=== PATIENT | female | born 1965 | race Caucasian/White ===

== ENCOUNTER 2018-06-24 21:07 | Emergency (ER) | payer BC ==
--- NOTE | 2018-06-24 21:55 | Emergency Department Record ---
History of Present Illness - General Stated Complaint: INFECTION ON FINGER ON RT HAND Time Seen by Provider: 06/24/18 21:26 Source: Patient Mode of Arrival: Ambulatory Limitations: No limitations - History of Present Illness Initial Comments: 52 yo female presents to ED for evaluation of swelling and pain to the right middle finger distally that began yesterday. Patient reports recent laceration to the tuft of the finger that was initially healing, however became more swollen and painful starting yesterday. 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 MD Complaint: Injury to:: Right Onset/Timin -: Days(s) Other Extremity Injury: Fingers: Right Other Injuries: None Handedness: Right Place: Home Improves With: None Worsens With: Other (palpation) Context: Laceration Associated Symptoms: Denies other symptoms - Related Data Previous Rx's Medication Instructions Recorded Clindamycin HCl 300 mg PO QID #27 capsule 06/24/18 Allergies Allergy/AdvReac Type Severity Reaction Status Date / Time No Known Drug Allergies Allergy Verified 06/24/18 21:58 Review of Systems Constitutional: Denies: Chills, Fever, Malaise, Night sweats Eyes: Denies: Eye discharge, Eye pain ENT: Denies: Congestion, Ear pain, Epistaxis Respiratory: Denies: Cough, Dyspnea Cardiovascular: Denies: Chest pain, Dyspnea on exertion Endocrine: Denies: Fatigue Gastrointestinal: Denies: Abdominal pain, Nausea, Vomiting Genitourinary: Denies: Incontinence, Retention Musculoskeletal: Reports: Myalgia. Denies: Arthralgia, Back pain Skin: Denies: Bruising, Change in color Neurological: Denies: Abnormal gait, Confusion, Headache, Seizure Psychiatric: Denies: Anxiety Hematological/Lymphatic: Denies: Anemia, Blood Clots Physical Exam - General General Appearance: Alert, Oriented x3, Cooperative, Mild distress Limitations: No limitations - Head Head exam: Atraumatic, Normocephalic, Normal inspection Head exam detail: negative: Abrasion, Contusion, Chavez's sign, General tenderness, Hematoma, Laceration - Eye Eye exam: Normal appearance. negative: Conjunctival injection, Periorbital swelling, Periorbital tenderness, Scleral icterus - ENT Ear exam: negative: Auricular hematoma, Auricular trauma Nasal Exam: negative: Active bleeding, Discharge, Dried blood, Foreign body Mouth exam: negative: Drooling, Laceration, Muffled voice, Tongue elevation - Neck Neck exam: Normal inspection. negative: Meningismus, Tenderness - Respiratory Respiratory exam: Normal lung sounds bilaterally. negative: Rales, Respiratory distress, Rhonchi, Stridor - Cardiovascular Cardiovascular Exam: Regular rate, Normal rhythm, Normal heart sounds - GI/Abdominal GI/Abdominal exam: Soft. negative: Rebound, Rigid, Tenderness - Rectal Rectal exam: Deferred - exam: Deferred - Extremities Extremities exam: Tenderness, Other (TTP to the tuft of the right middle digit on examination, STS of the tuft c/w underlying infection). negative: Calf tenderness, Pedal edema - Back Back exam: Denies: CVA tenderness (R), CVA tenderness (L) - Neurological Neurological exam: Alert, Normal gait, Oriented X3 - Psychiatric Psychiatric exam: Normal affect, Normal mood - Skin Skin exam: Normal color. negative: Abrasion Type of lesion: negative: abrasion Course - Reevaluation(s) Reevaluation #1: 06/24/18 22:18 1.5 cm cutaneous abscess overlying the right distal tuft of the middle digit was prepped and draped in sterile fashion. The lesion was then anesthetized with 1.0 mL of 1% Lidocaine without epinephrine with good anesthesia. The lesion was then incised with a #11 blade with moderate amount of purulent drainage removed. Lesion was then probed with curved scissors to break up loculations. Patient tolerated the procedure well without complications. Patient was started on Clindamycin while in the ED and instructed to apply warm soaks twice daily. Patient appears stable for discharge at this time. Disposition Disposition: Discharge Clinical Impression: Juanajose miguel of [facility] Disposition: Home, Self-Care Condition: (2) Stable Instructions: [facility] (ED) Additional Instructions: Return to ED if your symptoms worsen or if you have any concerns. Clindamycin as directed. Follow-up with your family doctor in 3-5 days as directed. Prescriptions: Clindamycin HCl 300 mg PO QID #27 capsule Time of Disposition: 22:20 Quality - Quality Measures Quality Measures: N/A - Blood Pressure Screening Does Patient Have Any of the Following: No Blood Pressure Classification: Normal BP Reading Systolic Measurement: 117 Diastolic Measurement: 74 Screening for High Blood Pressure: < Normal BP, F/U Not Required > [G8783]
[2018-06-24] MEDS ORDERED: CLINDAMYCIN 150 MG CAP PO ONE (22:18)
== END 2018-06-24 22:30 | disposition home or self-care (01) ==
LOC: ER 21:07
DX: L03.011 Cellulitis of right finger (principal)
CPT/HCPCS: 26010; 99283